=== PATIENT | female | born 1940 | race Caucasian/White ===

== ENCOUNTER → 2016-06-21 | Outpatient (CLI) | payer MEDICARE, BC ==
[2016-06-21 14:46] LABS: Blood Urea Nitrogen 22 mg/dL (7-17); Non-African American GFR(MDRD) 58 (>60 ml/min/1.73 sqM)
--- NOTE | 2016-06-21 15:36 | CT ---
CT CHEST FOR PULMONARY EMBOLISM. EXAMINATION TYPE: CT angio chest DATE OF EXAM: 06/21/2016 3:12 PM INDICATION: Patient complains of shortness of breath. CT DLP: 493.3 mGycm, Automated exposure control for dose reduction was used. CONTRAST: Patient injected with 80 mL of Visipaque 320. COMPARISON: NONE TECHNIQUE: CT of the chest is performed on a spiral scan at 2 mm thick sections. Study is performed with intravenous contrast timed for evaluation for pulmonary embolism. This will limit additional po rtions of the evaluation. 3-D MIP images reconstructed by the technologist are reviewed on the compu ter in the coronal and sagittal planes. FINDINGS: No persistent filling defects are evident to suggest an acute pulmonary embolism. No mediastinal or hilar adenopathy enlarged by CT criteria is evident. The ascending aorta diameter at the level of the main pulmonary artery is 3.4 cm. The main pulmonary artery diameter at the bifur cation is 2.8 cm. Some scarring or atelectasis may be at the anterior right middle lobe near the diaphragm. This could be followed. Minimal compressive atelectasis may be within the dependent portion of the lung bases. Limited CT section through the upper abdomen are unremarkable. IMPRESSIONS: 1. No acute pulmonary embolism. 2. Scarring or atelectasis within the right middle lobe. Small underlying mass density is not exclude d. Follow-up can be performed.
== END | disposition home or self-care (01) ==
LOC: RADCTMAIN 14:03
PROVIDERS: ATTEND Internal Medicine Critical Care Medicine
DX: R06.02 Shortness of breath (principal)
CPT/HCPCS: 82565; 84520; 71275; 36415; Q9967

== ENCOUNTER 2022-11-05 12:21 | Observation (INO) | payer MEDICARE ==
--- NOTE | 2022-11-05 12:43 | ED ---
Lower Extremity Injury HPI - General Chief Complaint: Extremity Injury, Lower Stated Complaint: R Hip Pain, sent by PCP anayeli with [facility] Time Seen by Provider: 11/05/22 12:24 Source: patient, family, RN notes reviewed Mode of arrival: wheelchair Limitations: no limitations - History of Present Illness Initial Comments: 82-year-old female presents emergency Department from orthopedics associate's office for admission secondary to intractable right hip pain, scheduled for right hip replacement tomorrow. Patient states the pain is 3 out of 10 while at rest but any movement pain is sniffily worse. She has had her medical clearance. She is scheduled to have surgery by Dr. Castillo tomorrow. - Related Data Allergies Allergy/AdvReac Type Severity Reaction Status Date / Time Penicillins Allergy Rash/Hives Verified 11/05/22 12:25 Sulfa (Sulfonamide Allergy Rash/Hives Verified 11/05/22 12:25 Antibiotics) Review of Systems ROS Statement: Those systems with pertinent positive or pertinent negative responses have been documented in the HPI. ROS Other: All systems not noted in ROS Statement are negative. Past Medical History Past Medical History: Hyperlipidemia, Hypertension, Thyroid Disorder Additional Past Medical History / Comment(s): diverticulitis History of Any Multi-Drug Resistant Organisms: None Reported Past Surgical History: Appendectomy, Bowel Resection, Heart Catheterization With Stent Additional Past Surgical History / Comment(s): colostomy /reversal Past Psychological History: No Psychological Hx Reported Smoking Status: Former smoker Past Alcohol Use History: None Reported Past Drug Use History: None Reported General Exam Limitations: no limitations General appearance: alert, in no apparent distress Head exam: Present: atraumatic, normocephalic, normal inspection Eye exam: Present: normal appearance, PERRL, EOMI. Absent: scleral icterus, conjunctival injection, periorbital swelling Neck exam: Present: normal inspection, full ROM. Absent: tenderness, meningismus, lymphadenopathy Respiratory exam: Present: normal lung sounds bilaterally. Absent: respiratory distress, wheezes, rales, rhonchi, stridor Cardiovascular Exam: Present: regular rate, normal rhythm, normal heart sounds. Absent: systolic murmur, diastolic murmur, rubs, gallop, clicks Extremities exam: Present: other (right hip mild tenderness neurovascular intact) Course Vital Signs 11/05/22 12:25 Temperature 98.2 F Pulse Rate 74 Respiratory 16 Rate Blood Pressure 95/58 O2 Sat by Pulse 97 Oximetry Medical Decision Making - Medical Decision Making Was pt. sent in by a medical professional or institution (CLAUDE Diaz, [employer] MAINFRAME DEVELOPER, urgent care, hospital, or half-way...) When possible be specific @ -Orthopedic surgeon Did you speak to anyone other than the patient for history (EMS, parent, family, police, friend...)? What history was obtained from this source @ -No Did you review nursing and triage notes (agree or disagree)? Why? @ -I reviewed and agree with nursing and triage notes Were old charts reviewed (outside hosp., previous admission, EMS record, old EKG, old radiological studies, urgent care reports/EKG's, half-way records)? Report findings @ -No old charts were reviewed Differential Diagnosis (chest pain, altered mental status, abdominal pain women, abdominal pain men, vaginal bleeding, weakness, fever, dyspnea, syncope, headache, dizziness, GI bleed, back pain, seizure, CVA, palpatations, mental health, musculoskeletal)? @ -Right hip pain, right hip osteoarthritis EKG interpreted by me (3pts min.). @ -As above X-rays interpreted by me (1pt min.). @ -None done CT interpreted by me (1pt min.). @ -None done U/S interpreted by me (1pt. min.). @ -None done What testing was considered but not performed or refused? (CT, X-rays, U/S, labs)? Why? @ -None What meds were considered but not given or refused? Why? @ -None Did you discuss the management of the patient with other professionals (professionals i.e. CLAUDE Diaz, [employer] MAINFRAME DEVELOPER, lab, RT, psych nurse, social work coordinator, compressor mechanic bus, teacher, tactical/mobile watch officer, case planner)? Give summary @ -Laine Warren from orthopedics associate for admission with medical consult. Was smoking cessation discussed for >3mins.? @ -No Was critical care preformed (if so, how long)? @ -No Were there social determinants of health that impacted care today? How? (Homelessness, low income, unemployed, alcoholism, drug addiction, transportation, low edu. Level, literacy, decrease access to med. care, usp, rehab)? @ -No Was there de-escalation of care discussed even if they declined (Discuss DNR or withdrawal of care, Hospice)? DNR status @ -No What co-morbidities impacted this encounter? (DM, HTN, Smoking, COPD, CAD, Cancer, CVA, ARF, Chemo, Hep., AIDS, mental health diagnosis, sleep apnea, morbid obesity)? @ -None Was patient admitted / discharged? Hospital course, mention meds given and route, prescriptions, significant lab abnormalities, going to OR and other pertinent info. @ -Admitted for pain control, medical management and surgery tomorrow. Undiagnosed new problem with uncertain prognosis? @ -No Drug Therapy requiring intensive monitoring for toxicity (Heparin, Nitro, Insulin, Cardizem)? @ -No Were any procedures done? @ -No Diagnosis/symptom? @ -Right hip pain] Acute, or Chronic, or Acute on Chronic? @ -[. Chronic] Uncomplicated (without systemic symptoms) or Complicated (systemic symptoms)? @ -[Uncomplicated] Side effects of treatment? @ -[No] Exacerbation, Progression, or Severe Exacerbation? @ -[No] Poses a threat to life or bodily function? How? (Chest pain, [place], [place], pneumonia, PE, COPD, DKA, ARF, appy, cholecystitis, CVA, Diverticulitis, Homicidal, Suicidal, threat to staff... and all critical care pts) @ -[No] Disposition Clinical Impression: Right hip pain, Osteoarthritis of right hip, Intractable pain Disposition: ADMITTED IP TO THIS [facility] Condition: Fair Referrals: Peyton Bishop PAC [Primary Care Provider] - 1-2 days Time of Disposition: 12:42
[2022-11-05] MEDS ORDERED: ONDANSETRON 4 MG/2 ML VIAL IVP PRN (12:44)
[2022-11-05 13:29] LABS: Basophils % (A) 0 %; Eosinophils # (A) 0.1 k/uL (0-0.7); Eosinophils % (A) 0 %; HCT 41.1 % (34.0-46.0); HGB 13.3 gm/dL (11.4-16.0); Lymphocytes # (A) 0.9 k/uL (1.0-4.8); Lymphocytes % (A) 6 %; MCH 28.8 pg (25.0-35.0); MCHC 32.4 g/dL (31.0-37.0); Mean Platelet Volume 8.4; Monocytes % (A) 7 %; Neutrophils # (A) 12.6 k/uL (1.3-7.7); Neutrophils % (A) 86 %; Platelet Count 320 k/uL (150-450); RBC 4.62 m/uL (3.80-5.40); RDW 13.7 % (11.5-15.5); WBC 14.7 k/uL (3.8-10.6)
[2022-11-05 13:42] LABS: Partial Thromboplastin Time 26.5 sec (22.0-30.0); Prothrombin Time 10.2 sec (9.0-12.0)
[2022-11-05] MEDS: HYDROmorphone 0.5 MG/0.5 ML SYRINGE IVP PRN ×2 (13:47→22:51)
[2022-11-05 13:56] LABS: ALT 16 U/L (4-34); AST 23 U/L (14-36); African American GFR (CKD) 41 (>60 ml/min/1.73 sqM); Albumin 4.3 g/dL (3.5-5.0); Alkaline Phosphatase 124 U/L (38-126); Blood Urea Nitrogen 35 mg/dL (7-17); Carbon Dioxide 24 mmol/L (22-30); Glucose 131 mg/dL (74-99); Non-African American GFR(CKD) 36 (>60 ml/min/1.73 sqM); Potassium 4.7 mmol/L (3.5-5.1); Total Bilirubin 0.8 mg/dL (0.2-1.3); Total Protein 7.7 g/dL (6.3-8.2)
[2022-11-05 14:02] LABS: Sodium 136 mmol/L (137-145)
[2022-11-05 14:40] LABS: Anion Gap 12 mmol/L; Chloride 100 mmol/L (98-107)
[2022-11-05 17:11] LABS: Appearance,Urine Clear (Clear); Bilirubin,Urine Negative (Negative); Blood,Urine Negative (Negative); Color,Urine Light Yellow; Glucose,Urine (UA) Negative (Negative); Ketones,Urine Negative (Negative); Leukocyte Esterase,Urine Negative (Negative); Nitrite,Urine Negative (Negative); Protein,Urine Negative (Negative); Specific Gravity,Urine 1.015 (1.001-1.035); Urobilinogen,Urine <2.0 mg/dL (<2.0)
--- NOTE | 2022-11-05 17:58 | P.HPOR ---
History of Present Illness H&P Date: 11/05/22 This patient is an 82-year-old female with past medical history of hypertension, hyperlipidemia, hypothyroidism who is scheduled to undergo an elective total hip arthroplasty tomorrow on 11/06/22. The patient was evaluated in the office earlier today by Dr. Castillo, and per the patient and her family she has been intractable pain due to her right hip arthritis. Therefore, the patient was sent to [facility] emergency department for admission for pain control prior to surgery tomorrow. Patient has been evaluated by her primary care physician and cardiology as an outpatient, has been cleared for surgery. Patient has no new complaints or concerns today. Past Medical History Past Medical History: Hyperlipidemia, Hypertension, Thyroid Disorder Additional Past Medical History / Comment(s): diverticulitis History of Any Multi-Drug Resistant Organisms: None Reported Past Surgical History: Appendectomy, Bowel Resection, Heart Catheterization With Stent Additional Past Surgical History / Comment(s): colostomy /reversal Past Psychological History: No Psychological Hx Reported Smoking Status: Former smoker Past Alcohol Use History: None Reported Past Drug Use History: None Reported Medications and Allergies Home Medications Medication Instructions Recorded Confirmed Type ALPRAZolam [Xanax] 0.5 mg PO DAILY PRN 11/05/22 11/05/22 History Atorvastatin [Lipitor] 40 mg PO HS 11/05/22 11/05/22 History Cholecalciferol [Vitamin D3 (125 125 mcg PO HS 11/05/22 11/05/22 History Mcg = 5000 Iu)] Famotidine [Pepcid] 20 mg PO DAILY 11/05/22 11/05/22 History Folic Acid 0.4 mg PO DAILY 11/05/22 11/05/22 History Levothyroxine Sodium 137 mcg PO DAILY 11/05/22 11/05/22 History Sertraline [Zoloft] 100 mg PO DAILY 11/05/22 11/05/22 History Triamterene-Hctz 37.5-25Mg 1 tab PO DAILY 11/05/22 11/05/22 History [Maxzide 37.5-25] lisinopriL [Zestril] 20 mg PO DAILY 11/05/22 11/05/22 History Allergies Allergy/AdvReac Type Severity Reaction Status Date / Time Penicillins Allergy Rash/Hives Verified 11/05/22 15:18 Sulfa (Sulfonamide Allergy Rash/Hives Verified 11/05/22 15:18 Antibiotics) sulfamethoxazole Allergy Rash/Hives Verified 11/05/22 15:18 [From Bactrim] trimethoprim [From Bactrim] Allergy Rash/Hives Verified 11/05/22 15:18 tramadol AdvReac Hallucinati Verified 11/05/22 15:18 ons Physical Examination Patient is examined earlier today in the office. On examination, patient is sitting up in a wheelchair in no apparent distress. She is alert and oriented 3. On inspection of her right hip, there are no open wounds or lacerations. There is pain with any attempts at passive [id number] of the right hip. Motor and sensory function is intact right lower extremity. Right lower extremity is warm and well-perfused. Results - Labs Labs: Abnormal Lab Results - Last 24 Hours (Table) 11/05/22 11/05/22 Range/Units 13:01 13:01 WBC 14.7 H (3.8-10.6) k/uL Neutrophils # 12.6 H (1.3-7.7) k/uL Lymphocytes # 0.9 L (1.0-4.8) k/uL Sodium 136 L (137-145) mmol/L BUN 35 H (7-17) mg/dL Creatinine 1.37 H (0.52-1.04) mg/dL Glucose 131 H (74-99) mg/dL H & H 11/05/22 Range/Units 13:01 Hgb 13.3 (11.4-16.0) gm/dL Hct 41.1 (34.0-46.0) % Coagulation 11/05/22 Range/Units 13:01 INR 1.0 (<1.2) Result Diagrams: 11/05/22 13:01 11/05/22 13:01 Assessment and Plan Assessment: Severe right hip osteoarthritis Plan: - Patient is scheduled to undergo right total hip arthroplasty tomorrow. She has been cleared as an outpatient by her PCP and her school clerk. Pre- operative lab work will be obtained inpatient today. - Internal medicine has been consulted for ashleigh-operative medical management. - Patient may ambulate as tolerated with a walker. - Pain medication as needed. - NPO diet at midnight.
[2022-11-05] MEDS: HYDROcodone/APAP 5-325MG 1 EACH TAB PO PRN (19:14)
[2022-11-05] MEDS ORDERED: ALPRAZolam 0.5 MG TAB PO PRN (22:21)
[2022-11-05] MEDS: ATORVASTATIN 40 MG TAB PO SCH (22:51)
[2022-11-05] MEDS: CHOLECALCIFEROL 125 MCG (5000 IU) TABLET PO SCH (22:51)
[2022-11-06] MEDS ORDERED: ROPIVACAINE/EPI/CLONIDINE/KET 50 ML SYRINGE MISCELLANE PRN (05:00)
[2022-11-06] MEDS ORDERED: oxyCODONE ER 10 MG TAB.ER.12H PO PRN (06:00)
[2022-11-06] MEDS ORDERED: DEXAMETHASONE SOD PHOSPHATE 10 MG/ML 1 ML VIAL IV PRN (06:00)
[2022-11-06] MEDS ORDERED: ACETAMINOPHEN TAB 500 MG TAB PO PRN (06:00)
[2022-11-06] MEDS ORDERED: TRANEXAMIC 1,000 MG/100ML-NACL 1,000 MG in SALINE 1 100ML.BAG IVPB PRN (06:00)
[2022-11-06] MEDS ORDERED: VANCOMYCIN 1,250 MG in SODIUM CHLORIDE 0.9% 250 ML IVPB PRN (06:00)
[2022-11-06] MEDS ORDERED: ONDANSETRON 4 MG/2 ML VIAL IVP PRN (06:00)
[2022-11-06] MEDS ORDERED: TRANEXAMIC 1,000 MG/100ML-NACL 1,000 MG in SALINE 1 100ML.BAG IV PRN (06:00)
[2022-11-06] MEDS ORDERED: DOCUSATE 100 MG CAP PO PRN (06:00)
[2022-11-06] MEDS ORDERED: KETOROLAC 15 MG/ML 1 ML VIAL IVP PRN (06:00)
[2022-11-06] MEDS ORDERED: FAMOTIDINE 20 MG/2 ML VIAL IVP PRN (06:00)
[2022-11-06] MEDS: HYDROcodone/APAP 5-325MG 1 EACH TAB PO PRN ×2 (06:39→21:09)
[2022-11-06] MEDS: LEVOTHYROXINE 137 MCG TAB PO SCH (06:39)
[2022-11-06] MEDS: SERTRALINE 100 MG TAB PO SCH (08:18)
[2022-11-06] MEDS: FAMOTIDINE 20 MG TAB PO SCH (08:18)
[2022-11-06] MEDS: FOLIC ACID 1 MG TAB PO SCH (08:18)
[2022-11-06] MEDS ORDERED: TRIAMTERENE-HCTZ 37.5-25MG 1 EACH TAB PO SCH (09:00)
[2022-11-06] MEDS ORDERED: VANCOMYCIN IV PER PHARMACY 1 EACH MISC MISCELLANE PRN (09:22)
[2022-11-06 10:46] LABS: Basophils % (A) 0 %; Eosinophils # (A) 0.2 k/uL (0-0.7); Eosinophils % (A) 1 %; HCT 41.6 % (34.0-46.0); HGB 13.5 gm/dL (11.4-16.0); Lymphocytes # (A) 1.1 k/uL (1.0-4.8); Lymphocytes % (A) 9 %; MCHC 32.4 g/dL (31.0-37.0); MCV 89.6 fL (80.0-100.0); Mean Platelet Volume 8.1; Monocytes # (A) 0.8 k/uL (0-1.0); Monocytes % (A) 7 %; Neutrophils # (A) 10.2 k/uL (1.3-7.7); Neutrophils % (A) 82 %; Platelet Count 329 k/uL (150-450); RBC 4.65 m/uL (3.80-5.40); RDW 13.8 % (11.5-15.5); WBC 12.5 k/uL (3.8-10.6)
[2022-11-06 10:56] LABS: African American GFR (CKD) 44 (>60 ml/min/1.73 sqM); Anion Gap 13 mmol/L; Blood Urea Nitrogen 41 mg/dL (7-17); Calcium 9.8 mg/dL (8.4-10.2); Carbon Dioxide 20 mmol/L (22-30); Chloride 103 mmol/L (98-107); Glucose 142 mg/dL (74-99); Magnesium 1.6 mg/dL (1.6-2.3); Non-African American GFR(CKD) 38 (>60 ml/min/1.73 sqM); Potassium 4.9 mmol/L (3.5-5.1); Sodium 136 mmol/L (137-145)
[2022-11-06] MEDS ORDERED: Magnesium Replacement Protocol 1 EACH MISC MISCELLANE PRN (11:18)
--- NOTE | 2022-11-06 11:35 | P.CONS ---
History of Present Illness - Reason for Consult Consult date: 11/06/22 Medical management, right hip arthroplasty - History of Present Illness This is a 82-year-old female who presented to the emergency department 1 day prior to outpatient orthopedic intervention for uncontrolled pain of the right hip. Patient is scheduled for right hip arthroplasty with Dr. Castillo today and has received cardiology and medical clearance from her primary care provider Peyton Blackwell. Patient reports she had a stress test and echocardiogram within the last month or so and has achieved cardiac clearance. Patient follows with Peyton Bishop in the outpatient setting with a past medical history of hyperlipidemia, hypertension, osteoarthritis, thyroid disorder, previous heart catheterization with stenting and was a former smoker. Patient denies any alcohol or illicit drug use. Patient was having some uncontrolled pain in the right hip and presented to the emergency department also with some generalized feelings of shortness of breath. EKG in the ER showed sinus rhythm with frequent supraventricular premature complexes with heart rate of 74 bpm. Will obtain repeat EKG this patient's heart rate is noted to be in the 40s and 50s today. Patient reports this is chronic. Patient also reports she chronically has an elevated white count on initial labs were 14.7 with a hemoglobin of 13.3 and platelets were normal at 320. Sodium was 136 with a potassium of 4.7, BUN 35 with a creatinine of 1.37. Urinalysis was negative. Patient was admitted to orthopedics and scheduled to have right hip arthroplasty today. Review Of Systems: Constitutional: No fever, no chills, no night sweats. No weight change. No weakness, fatigue or lethargy. No daytime sleepiness. EENT: No headache. No blurred vision or double vision, no loss of vision. No loss of Hearing, no ringing in the ears, no dizziness. No nasal drainage or congestion. No epistaxis. No sore throat. Lungs: Reports of shortness of breath prior to ER admission, no cough, no sputum production. No wheezing. Cardiovascular: No chest pain, no lower extremity edema. No palpitations. No paroxysmal nocturnal dyspnea. No orthopnea. No lightheadedness or dizziness. No syncopal episodes. Abdominal: No abdominal pain. No nausea, vomiting. No diarrhea. No constipation. No bloody or tarry stools.. No loss of appetite. Genitourinary: No dysuria, increased frequency, urgency. No urinary retention. Musculoskeletal: No myalgias. No muscle weakness, no gait dysfunction, no frequent falls. No back pain. No neck pain. Reports severe right hip pain Integumentary: No wounds, no lesions. No rash or pruritus. No unusual bruising. No change in hair or nails. Neurologic: No aphasia. No facial droop. No change in mentation. No head injury. No headache. No paralysis. No paresthesia. Psychiatric: No depression. No anxiety. No mood swings. Endocrine: No abnormal blood sugars. No weight change. No excessive sweating or thirst. No cold intolerance. PHYSICAL EXAMINATION: GENERAL: The patient is alert and oriented x4, Well developed, well nourished. Obese HEENT: Pupils are round and equally reacting to light. EOMI. no scleral icterus. No conjunctival pallor. Normocephalic, atraumatic. No pharyngeal erythema. No thyromegaly. CARDIOVASCULAR: S1 and S2 muffled PULMONARY: diminished breath sounds bilaterally with no wheezing or rhonchi noted. ABDOMEN: soft. Nontender on exam. obese. non-distended, normoactive bowel sounds. No palpable organomegaly. MUSCULOSKELETAL: No joint swelling or deformity. EXTREMITIES: No cyanosis, clubbing, or pedal edema. NEUROLOGICAL: Gross neurological examination did not reveal any focal deficits. Diffuse weakness SKIN: No rashes. Assessment: Right hip pain with history of severe osteoarthritis scheduled to undergo right hip arthroplasty today Acute kidney injury, likely secondary to diuretic and lisinopril which will be held, trending down Hypomagnesemia, being replaced History of hyperlipidemia History of hypertension History of osteoarthritis Hypothyroidism history Obesity with BMI of 30.6 GI prophylaxis DVT prophylaxis Full code Plan: Patient is admitted under orthopedics and was at the office yesterday and was sent here for pain control prior to surgery. Patient is currently nothing by mouth Initial EKG obtained and reviewed and patient reports she went to her lump room supervisor in the [place] area and had 2-D echo along with stress test which was told as normal. Patient's heart rate this morning is in the 40s and 50s and will obtain EKG. Patient reports this is chronic Patient's white count mildly elevated, likely reactive as patient is afebrile denies any chest pain or shortness of breath or any pain, burning, or frequency with urination Patient's creatinine mildly elevated and patient reports this is chronic as well most likely secondary to lisinopril and diuretic use which are being held Will obtain chest x-ray and EKG to verify Follow-up labs show a white count of 12.5 hemoglobin remained stable at 13.5, BUN 41 and creatinine slightly improved at 1.30 Magnesium 1.6 and will replace and follow up with repeat labs in a.m. Risks versus benefits were explained and patient has obtained surgical and medical clearance outpatient and given patient's comorbidities patient is low to moderate risk for surgical intervention. Patient scheduled to undergo right hip arthroplasty today. We will continue to follow with orthopedics during hospitalization. Thank you kindly for this consultation. The impression and plan of care has been dictated by Moriah Mack, nurse practitioner as directed. Dr. Ninfa MD I have performed a history and examination and MDM of this patient, discussed the same with the dictator, and agree with the dictator's assessment and plan as written ,documented as a scribe. Based on total visit time, I have performed more than 50% of the visit. Any additional findings or plans will be noted. Past Medical History Past Medical History: Hyperlipidemia, Hypertension, Osteoarthritis (OA), Thyroid Disorder Additional Past Medical History / Comment(s): diverticulitis History of Any Multi-Drug Resistant Organisms: None Reported Past Surgical History: Appendectomy, Bowel Resection, Heart Catheterization With Stent Additional Past Surgical History / Comment(s): colostomy /reversal Past Anesthesia/Blood Transfusion Reactions: No Reported Reaction Date of Last Stent Placement:: 2009? Past Psychological History: No Psychological Hx Reported Smoking Status: Former smoker Past Alcohol Use History: None Reported Past Drug Use History: None Reported Medications and Allergies Home Medications Medication Instructions Recorded Confirmed Type ALPRAZolam [Xanax] 0.5 mg PO DAILY PRN 11/05/22 11/05/22 History Atorvastatin [Lipitor] 40 mg PO HS 11/05/22 11/05/22 History Cholecalciferol [Vitamin D3 (125 125 mcg PO HS 11/05/22 11/05/22 History Mcg = 5000 Iu)] Famotidine [Pepcid] 20 mg PO DAILY 11/05/22 11/05/22 History Folic Acid 0.4 mg PO DAILY 11/05/22 11/05/22 History Levothyroxine Sodium 137 mcg PO DAILY 11/05/22 11/05/22 History Sertraline [Zoloft] 100 mg PO DAILY 11/05/22 11/05/22 History Triamterene-Hctz 37.5-25Mg 1 tab PO DAILY 11/05/22 11/05/22 History [Maxzide 37.5-25] lisinopriL [Zestril] 20 mg PO DAILY 11/05/22 11/05/22 History Allergies Allergy/AdvReac Type Severity Reaction Status Date / Time Penicillins Allergy Rash/Hives Verified 11/05/22 15:18 Sulfa (Sulfonamide Allergy Rash/Hives Verified 11/05/22 15:18 Antibiotics) sulfamethoxazole Allergy Rash/Hives Verified 11/05/22 15:18 [From Bactrim] trimethoprim [From Bactrim] Allergy Rash/Hives Verified 11/05/22 15:18 tramadol AdvReac Hallucinati Verified 11/05/22 15:18 ons Physical Exam Vitals: Vital Signs Temp Pulse Pulse Resp BP BP Pulse Ox 11/06/22 08:00 45 L 16 11/06/22 06:57 98.4 F 45 L 16 119/66 94 L 11/06/22 02:00 98.1 F 49 L 95/51 93 L 11/05/22 20:00 98 F 69 17 112/71 93 L 11/05/22 18:34 70 18 104/54 94 L 11/05/22 16:43 64 20 123/107 96 11/05/22 14:40 77 18 133/64 100 11/05/22 13:44 69 18 120/69 94 L 11/05/22 12:25 98.2 F 74 16 95/58 97 Intake and Output 11/05/22 11/06/22 11/06/22 22:59 06:59 14:59 Other: Voiding Method Bedside Commode Bedside Commode # Voids 1 Weight 83.461 kg Results CBC & Chem 7: 11/06/22 10:35 11/06/22 10:35 Labs: Abnormal Lab Results - Last 24 Hours (Table) 11/05/22 11/05/22 Range/Units 13:01 13:01 WBC 14.7 H (3.8-10.6) k/uL Neutrophils # 12.6 H (1.3-7.7) k/uL Lymphocytes # 0.9 L (1.0-4.8) k/uL Sodium 136 L (137-145) mmol/L BUN 35 H (7-17) mg/dL Creatinine 1.37 H (0.52-1.04) mg/dL Glucose 131 H (74-99) mg/dL
[2022-11-06] MEDS ORDERED: MAGNESIUM SULFATE-D5W PMX 1 GM in DEXTROSE/WATER 1 100ML.BAG IVPB ONE (12:00)
--- NOTE | 2022-11-06 12:12 | XR ---
EXAMINATION TYPE: XR chest 1V portable DATE OF EXAM: 11/06/2022 COMPARISON: NONE HISTORY: Shortness of breath TECHNIQUE: Single frontal view of the chest is obtained. FINDINGS: There is no focal air space opacity, pleural effusion, or pneumothorax seen. The cardiac silhouette size is within normal limits. Hypertrophic and degenerative changes spine. Diffuse osteope veronika. AC joint arthropathy. Hyperinflation suggests COPD. IMPRESSION: No acute intrathoracic process.
[2022-11-06] MEDS ORDERED: IV FLUID CONTINUATION 1,000 ML IV ONE (13:16)
[2022-11-06] MEDS ORDERED: LIDOCAINE 1% (10MG/ML) FOR IV START INTRADERMA PRN (13:29)
[2022-11-06] MEDS ORDERED: MIDAZOLAM 2 MG/2 ML VIAL IV PRN (13:29)
[2022-11-06] MEDS ORDERED: ONDANSETRON 4 MG/2 ML VIAL IVP ONE (13:29)
[2022-11-06] MEDS ORDERED: HYDROmorphone 0.5 MG/0.5 ML SYRINGE IVP PRN ×4 (13:29→16:57)
[2022-11-06] MEDS ORDERED: ROPIVACAINE 5 MG/ML 30 ML VIAL ONE (14:11)
[2022-11-06] MEDS ORDERED: NEOSTIGMINE 1 MG/ML 10 ML VIAL ONE (14:11)
[2022-11-06] MEDS ORDERED: LIDOCAINE 2% INJ 20 MG/ML (2 ML VIAL) ONE (14:11)
[2022-11-06] MEDS ORDERED: PROPOFOL 10 MG/ML 20 ML VIAL IV ONE (14:11)
[2022-11-06] MEDS ORDERED: fentaNYL (PF) 50 MCG/ML 2 ML AMP ONE (14:11)
[2022-11-06] MEDS ORDERED: GLYCOPYRROLATE 0.2 MG/ML 2 ML VIAL ONE (14:11)
[2022-11-06] MEDS ORDERED: DEXAMETHASONE SOD PHOSPHATE 4 MG/ML 1 ML VIAL ONE (14:11)
[2022-11-06] MEDS ORDERED: SUCCINYLCHOLINE CHLORIDE 200 MG/10 ML VIAL IV ONE (14:11)
[2022-11-06] MEDS ORDERED: ROCURONIUM 10 MG/ML (5 ML VIAL) IV ONE (14:11)
[2022-11-06] MEDS ORDERED: ePHEDrine 50 MG/ML 1 ML VIAL ONE (14:11)
[2022-11-06] MEDS ORDERED: TRANEXAMIC 1,000 MG/100ML-NACL PREMIX BAG ONE (14:11)
--- NOTE | 2022-11-06 15:44 | P.ANPRN ---
Procedure Note - Anesthesia - Nerve Block Performed Right Gato Single Time Out Performed: Yes Date of Procedure: 11/06/22 Procedure Start Time: 14:06 Procedure Stop Time: 14:10 Location of Patient: PreOp Indication: Acute Post-Operative Pain, Requested by Surgeon Sedation Type: Sedate with meaningful contact maintained Preparation: Sterile Prep Position: Supine Needle Types: Pajunk Needle Gauge: 21 Ultrasound used to visualize needle placement: Yes Ultrasound used to observe medication spread: Yes Blood Aspirated: No Pain Paresthesia on Injection Noted: No Resistance on Injection: Normal Image Stored and Saved: Yes Events: Uneventful and Well Tolerated (ropi .5% 20cc plus dexamethasone 4mg)
[2022-11-06] MEDS ORDERED: VANCOMYCIN 1,000 MG VIAL MISCELLANE ONE (16:13)
[2022-11-06] MEDS ORDERED: LACTATED RINGERS 1,000 ML IV ONE (16:31)
--- NOTE | 2022-11-06 16:55 | P.OP ---
Date of Procedure: 11/06/22 Preoperative Diagnosis: 1. 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 Osteopenia 3. BMI 30.6 4. Coronary artery disease 5. Chronic kidney disease Postoperative Diagnosis: Same Procedure(s) Performed: 1. Right direct anterior total hip arthroplasty 2. Application of negative pressure incisional wound VAC right hip, less than 50 cm (incision length 15 cm) Implants: 1. Tarrs Trident II Acetabular Cup, Size #48 2. Tarrs Accolade C Size # 3 Femoral Stem, Standard Offset 3. Dual Mobility OD 38 mm, ID 22.2 mm, +0 neck Anesthesia: REESE, regional Surgeon: Luis Castillo Site Auditor #1: Camila Warren Estimated Blood Loss (ml): 200 IV fluids (ml): 700 Pathology: none sent Condition: stable Disposition: PACU Indications for Procedure: The patient is a very pleasant 82-year-old female with long-standing history of right hip problems. I been seeing her and managing her nonoperatively for her hip for the past year. Over the past several months she has been incapacitated by her hip pain and has been essentially wheelchair bound. The patient's children as well as the patient of both requested proceeding with total hip replacement. We discussed the potential risk for complication given her age. They understand this but all wished to proceed with surgery. The patient became so painful and the family was having such a difficult time taking care of her th at she was admitted yesterday and cleared for surgery today. I had a long discussion with the patient in the office on the potential risks and complications of an elective total hip replacement through a direct anterior approach. Risks discussed include, but are certainly not limited to, risks from anesthesia, superficial infection requiring local wound care or antibiotics, deep ashleigh-prosthetic joint infection and the treatment required to eradicate infection, intraoperative fracture, postoperative periprosthetic fracture, damage to local blood vessels or nerves particularly the lateral femoral cutaneous nerve, delayed wound healing requiring local wound care or possibly surgical debridement, hip dislocation, leg length discrepancy, soft tissue irritation around the total hip implant such as iliopsoas tendinitis or trochanteric bursitis, wear and osteolysis from the implants, squeaking or audible noises, groin pain, thigh pain, heterotopic ossification, stiffness, aseptic loosening of the implants, dissatisfaction with surgical outcome, need for revision surgery, DVT, PE, swelling of the operative extremity, acute coronary event, stroke, failure to thrive, and possibly loss of life or limb. The patient understands that while these are the most common complications after an elective hip replacement there are certainly other less common complications possible. They were given ample time to ask questions regarding the potential complications of a hip replacement. Following our discussion the patient provided their verbal and written consent to go forward with an elective total hip replacement. Operative Findings: Severe right hip arthritis with full-thickness cartilage loss and collapse of the femoral head Description of Procedure: The patient was identified in the preoperative holding area and the correct hip was marked with my initials. I reviewed the procedure and consent with the patient. All of their questions were answered. The patient was then brought back into the operating room by anesthesia. While on the [facility] anesthesia was administered by the anesthesia team. Preoperative antibiotics and tranexamic acid were also given. After the patient was under anesthesia I examined their ankles to determine their preoperative leg length discrepancy. The skin over the anterior aspect of the hip was shaved to remove hair over the site of planned incision. Both feet and ankles were padded with webril and boots for the [place] were applied. The patient was then carefully transferred onto the [place] table. A perineal post was immediately placed. The arms were placed on arm holders and were well-padded. Both boots were secured to the spars on the [place] table. The patient was positioned so that the pelvis was centered over the post. Nonsterile drapes were applied. A timeout was performed identifying the correct patient, operative extremity, and procedure. At this point fluoroscopy was brought in to take preoperative images of the pelvis and operative hip. Using the standing AP pelvis from the office as a template, a comparable image was obtained with fluoroscopy. A metallic bar was used to create a bi-ischial line for use as a reference to leg length adjustments during the procedure. Global offset was also measured on both the operative and nonoperative leg. Fluoroscopy was then brought out and a pre-scrub using a chlorhexidine scrub brush was performed. The operative limb was then prepped and draped in the standard sterile fashion. An anterior longitudinal incision was made lateral and distal to the ASIS. The skin and subcutaneous tissues were incised sharply. The underlying tensor fascia was identified and incised in its midportion. The fascia was dissected free from the underlying muscle and the muscle belly was retracted. A blunt tipped cobra retractor was placed over the superior neck under the muscle fibers of the gluteus minimus. The deep enveloping fascia of the tensor was incised. The anterior leash of vessels were then identified and cauterized. The fascia between the rectus and the capsule was then incised and the pre-capsular fat was excised. A second Cobra was placed inferior to the neck. The interval between the rectus and iliocapsularis and the hip capsule was developed and a retractor was placed carefully over the anterior rim of the acetabulum. A T-shaped anterior capsulotomy was performed. The superior capsular leaflet was left in place in the inferior capsular flap was excised. The Cobra retractors were placed intracapsularly. We then made a femoral neck osteotomy according to preoperative and intraoperative templating and confirmed the level of the osteotomy using fluoroscopic imaging. The femoral head was removed, passed off to the back table, and sized. The superior capsular flap was excised. Retractors were placed circumferentially exposing the acetabulum. We then circumferentially debrided the acetabulum free of labrum and osteophytes. The pulvinar was removed to fully visualize the cotyloid fossa. We then sequentially reamed to achieve peripheral fit and excellent bleeding subchondral bone. The socket was thoroughly irrigated. The acetabular component was impacted into the appropriate position using fluoroscopy to guide version, inclination, and depth of insertion taking care to have a comparable image of the AP pelvis to the standing image taken in the office. An excellent press-fit was achieved and final position was confirmed using fluoroscopy. The press fit was augmented with bony cancellus dome screws. The liner was then impacted into the socket. Attention was then turned to the femur. The remnant dorsal lateral capsule was excised. The short external rotators were visible and protected. A bone hook was used to confirm appropriate translation of the trochanter away from the acetabulum. The leg was then extended and adducted and the bone hook was used to elevate the femur for broaching. On inspection of the patient's proximal femur, they appeared to have poor bone quality so I elected to proceed with cemented fixation of the femoral component. A box osteotome and blunt tipped canal sound was then utilized to gain access to the femoral canal. We then sequentially broached the femur in appropriate anteversion until torsional stability was achieved and the implant was felt to have reached the appropriate size to allow trialing. The neck cut was brought flush to the trial broach with a calcar planar. A trial neck and head were then placed onto the broach and the hip was atraumatically reduced under direct visualization. External rotation to 90 was performed to assess stability. Fluoroscopy was brought in. An AP and lateral fluoroscopic image of the proximal femur was obtained to assess position and fill of the trial broach. An AP of the pelvis was then obtained and matched to the preoperative image taken. A bi-ischial bar was then placed and measurements were taken to assess changes in length and offset. The hip was then carefully dislocated, the proximal femur was exposed, and the trial implants were removed. The proximal femur was then prepared for cementing. The canal was thoroughly irrigated with pulsatile lavage to remove blood and marrow contents. A cement restrictor was placed to a depth just distal to the tip of the final implant. Epinephrine-soaked gauze was then packed into the proximal femur. 2 bags of cement were then mixed using a centrifuge and placed into a cement gun. Anesthesia was notified that cementing was about to commence to make sure the patient was appropriately ventilated and hydrated. Once the cement had reached appropriate consistency, the cement gun was used to fill the canal in a retrograde fashion starting at the restrictor. Cement was then pressurized into the canal with a blue tipped combiner operator. The stem was then carefully introduced into the cement taking care to guide the implant into appropriate version. The stem was held in position until the cement had fully set. All extra cement was removed while the cement was hardening. The trunnion was cleansed and the final head was tapped into place to engage the Olivarez taper. The acetabulum was irrigated and visualized to be free of debris. The hip was carefully reduced. Stability was checked clinically with external rotation to 90 and there was no evidence of instability. Final fluoroscopic images were taken. The wound was then thoroughly irrigated and soaked with a dilute Betadine rinse for 3 minutes. 3 L of sterile saline was irrigated through the wound using pulsatile lavage. Local anesthetic cocktail was injected into the soft tissues around the surgical field. 2 g of vancomycin powder was placed deep within the wound around the implant. A deep drain was placed. The wound was then closed in layers. An incisional wound VAC was placed over the surgical incision and drain site. The wound VAC had an excellent seal and was set to continuous suction. The drapes were taken down and the patient was carefully transferred off of the [place] table. Following removal of the boots the leg lengths felt acceptable. The patient was then taken to recovery room having tolerated the procedure well. Camila Warren PA-C was required as a skilled visitor services assistant for patient positioning, surgical exposure, retraction, placement of implants, and closure of the surgical wound. PLAN: The patient can weight-bear as tolerated on the operative extremity. 2 doses of postoperative antibiotics. The patient will be discharged home on doxycycline 100 mg twice a day for 2 weeks given her body habitus, age, and history of finger infection. Her incisional wound VAC will be left in place for 2 weeks. DVT prophylaxis with aspirin 81 mg twice a day based on preoperative risk stratification. Physical therapy for gait training. Discontinue drain postoperative day #1 if output is less than 100 mL per shift. She will likely need discharge to rehab.
[2022-11-06] MEDS ORDERED: hydrOXYzine pamoate 25 MG CAP PO PRN (16:57)
[2022-11-06] MEDS ORDERED: NALOXONE 0.4 MG/ML 1 ML VIAL IV PRN (16:57)
[2022-11-06] MEDS ORDERED: HYDROcodone/APAP 5-325MG 1 EACH TAB PO PRN (17:07)
[2022-11-06] MEDS: LACTATED RINGERS 1,000 ML IV SCH ×2 (19:24)
[2022-11-06] MEDS: ATORVASTATIN 40 MG TAB PO SCH (21:09)
[2022-11-06] MEDS: ASPIRIN 81 MG PO SCH (21:09)
[2022-11-06] MEDS: SENNOSIDES-DOCUSATE SODIUM 1 EACH TAB PO SCH (21:09)
[2022-11-06] MEDS: CHOLECALCIFEROL 125 MCG (5000 IU) TABLET PO SCH (21:13)
--- NOTE | 2022-11-06 22:16 | FL ---
EXAMINATION TYPE: FL guidance operating room, XR Hip Limited RT DATE OF EXAM: 11/06/2022 CLINICAL HISTORY: Right hip pain and osteoarthritis TECHNIQUE: Fluoroscopy. Limited intraoperative views right hip COMPARISON: None. FINDINGS: Fluoroscopic guidance was provided during right hip replacement procedure performed by Dr. Castillo. A total of 37 seconds of fluoroscopic time was utilized during the procedure and 7 spot i mages was acquired. Total dose area product (DAP) in uGy*m?, mGy*cm? (or similar: 1.7576. Intraoperative images acquired show metallic hardware from total right hip arthroplasty satisfactory in position on intraoperative images obtained. IMPRESSION: As Above.
[2022-11-07] MEDS: HYDROcodone/APAP 5-325MG 1 EACH TAB PO PRN ×4 (02:43→20:28)
[2022-11-07] MEDS: LEVOTHYROXINE 137 MCG TAB PO SCH (06:24)
[2022-11-07] MEDS: LACTATED RINGERS 1,000 ML IV SCH ×2 (06:27→20:32)
[2022-11-07 07:30] LABS: Basophils % (A) 0 %; Eosinophils % (A) 0 %; HCT 31.6 % (34.0-46.0); Lymphocytes # (A) 0.4 k/uL (1.0-4.8); Lymphocytes % (A) 2 %; MCH 29.3 pg (25.0-35.0); MCHC 32.4 g/dL (31.0-37.0); MCV 90.5 fL (80.0-100.0); Mean Platelet Volume 8.4; Monocytes # (A) 1.5 k/uL (0-1.0); Monocytes % (A) 7 %; Neutrophils # (A) 19.5 k/uL (1.3-7.7); Neutrophils % (A) 90 %; Platelet Count 295 k/uL (150-450); RBC 3.49 m/uL (3.80-5.40); RDW 13.8 % (11.5-15.5); WBC 21.7 k/uL (3.8-10.6)
[2022-11-07 07:37] LABS: HGB 10.2 gm/dL (11.4-16.0)
[2022-11-07] MEDS: SERTRALINE 100 MG TAB PO SCH (08:57)
[2022-11-07] MEDS: ASPIRIN 81 MG PO SCH ×2 (08:57→20:28)
[2022-11-07] MEDS: FAMOTIDINE 20 MG TAB PO SCH (08:57)
[2022-11-07] MEDS: FOLIC ACID 1 MG TAB PO SCH (08:57)
[2022-11-07] MEDS ORDERED: TEMAZEPAM 7.5 MG CAP PO PRN (12:24)
[2022-11-07 13:28] LABS: African American GFR (CKD) 26 (>60 ml/min/1.73 sqM); Anion Gap 13 mmol/L; Blood Urea Nitrogen 49 mg/dL (7-17); Calcium 8.7 mg/dL (8.4-10.2); Carbon Dioxide 20 mmol/L (22-30); Chloride 100 mmol/L (98-107); Glucose 146 mg/dL (74-99); Non-African American GFR(CKD) 23 (>60 ml/min/1.73 sqM); Potassium 4.7 mmol/L (3.5-5.1); Sodium 133 mmol/L (137-145)
[2022-11-07] MEDS: TAMSULOSIN 0.4 MG CAP.ER.24H PO SCH (13:35)
[2022-11-07] MEDS ORDERED: QUEtiapine 25 MG TAB PO PRN (15:50)
[2022-11-07] MEDS ORDERED: ALPRAZolam 0.5 MG TAB PO PRN (15:51)
--- NOTE | 2022-11-07 16:06 | P.PN ---
Subjective Progress Note Date: 11/07/22 - Reason for Consult Consult date: 11/06/22 Medical management, right hip arthroplasty - History of Present Illness This is a 82-year-old female who presented to the emergency department 1 day prior to outpatient orthopedic intervention for uncontrolled pain of the right hip. Patient is scheduled for right hip arthroplasty with Dr. Castillo today and has received cardiology and medical clearance from her primary care provider Peyton Blackwell. Patient reports she had a stress test and echocardiogram within the last month or so and has achieved cardiac clearance. Patient follows with Peyton Bishop in the outpatient setting with a past medical history of hyperlipidemia, hypertension, osteoarthritis, thyroid disorder, previous heart catheterization with stenting and was a former smoker. Patient denies any alcohol or illicit drug use. Patient was having some uncontrolled pain in the right hip and presented to the emergency department also with some generalized feelings of shortness of breath. EKG in the ER showed sinus rhythm with frequent supraventricular premature complexes with heart rate of 74 bpm. Will obtain repeat EKG this patient's heart rate is noted to be in the 40s and 50s today. Patient reports this is chronic. Patient also reports she chronically has an elevated white count on initial labs were 14.7 with a hemoglobin of 13.3 and platelets were normal at 320. Sodium was 136 with a potassium of 4.7, BUN 35 with a creatinine of 1.37. Urinalysis was negative. Patient was admitted to orthopedics and scheduled to have right hip arthroplasty today. 11/07/2022 Patient is seen in follow-up today status post right hip arthroplasty and reports her pain is good and controlled of the right hip although having some neck pain and also experience some urinary retention requiring straight ca theterization this morning. Discussed with nursing staff and will start Flomax and continue with protocol if requiring another straight catheterization consider indwelling Trinh catheter. Patient's kidney functions elevated today at 1.97 and was continued on vancomycin for surgery which has been completed and we'll transition to gentle IV hydration with normal saline as sodium is also slightly low at 133 and follow-up with repeat labs to monitor kidney functions. Magnesium 1.7 and will replace per protocol as well. White count was elevated at 21.7 although patient is afebrile with no reports of shortness of breath or infectious process. Most likely reactive and will follow-up with repeat labs in a.m. Patient is afebrile denies chest pain or shortness of breath and reports tolerating diet. Patient not eating very much as she reports not much of an appetite today. Patient also reports she hasn't slept in 2 days and will add as needed Seroquel at night. Patient work with physical therapy with case management following and working on ECF. Review of systems: Constitutional: No reports of fatigue, fever, or chills Cardiovascular: No reports of chest pain or palpitations Respiratory: No reports of shortness of breath or cough GI: No reports of nausea, vomiting, or diarrhea : No reports of dysuria or pain or frequency with urination. Patient retaining this morning requiring straight catheterization Neurovascular: No reports of weakness or numbness All medications have been reviewed PHYSICAL EXAMINATION: GENERAL: The patient is alert and oriented x4, Well developed, well nourished. Obese HEENT: Pupils are round and equally reacting to light. EOMI. no scleral icterus. No conjunctival pallor. Normocephalic, atraumatic. No pharyngeal erythema. No thyromegaly. CARDIOVASCULAR: S1 and S2 muffled PULMONARY: diminished breath sounds bilaterally with no wheezing or rhonchi noted. ABDOMEN: soft. Nontender on exam. obese. non-distended, normoactive bowel soun ds. No palpable organomegaly. MUSCULOSKELETAL: No joint swelling or deformity. EXTREMITIES: No cyanosis, clubbing, or pedal edema. NEUROLOGICAL: Gross neurological examination did not reveal any focal deficits. Diffuse weakness SKIN: No rashes. Assessment: Right hip pain with history of severe osteoarthritis status post right hip arthroplasty , postop day 1 Acute kidney injury, likely secondary to diuretic and lisinopril which will be held, trending down Hypomagnesemia, improving Urinary retention, likely secondary to anesthesia and medication effect History of hyperlipidemia History of hypertension History of osteoarthritis Hypothyroidism history Obesity with BMI of 30.6 GI prophylaxis DVT prophylaxis Full code Plan: Patient is admitted under orthopedics and is status post right hip arthroplasty Patient tolerated the procedure well. Patient did have some urinary retention this morning requiring straight catheterization. Discussed with nursing staff to continue protocol with bladder scan and if requiring another straight catheterization would recommend indwelling Trinh catheter. Will initiate Flomax. Kidney functions slightly elevated and will add gentle IV hydration as sodium is mildly low as well at 133 and will follow-up with repeat labs Patient's white count remains elevated, likely reactive and will follow-up on repeat labs. Patient is afebrile denies shortness of breath or does not appear infectious at all Patient's creatinine mildly elevated and patient reports this is chronic as well most likely secondary to lisinopril and diuretic use and did receive vancomycin during surgery, repeat labs ordered for a.m. Patient working with physical therapy and planning on ECF for continued strength and mobility. Patient does live alone and normally independent prior to surgery and would benefit from ECF for continued PT/OT therapy. Case management following and has submitted for insurance authorization We will continue to follow with orthopedics during hospitalization. Thank you kindly for this consultation. The impression and plan of care has been dictated by Moriah Mack, nurse practitioner as directed. Dr. Ninfa MD I have performed a history and examination and MDM of this patient, discussed the same with the dictator, and agree with the dictator's assessment and plan as written ,documented as a scribe. Based on total visit time, I have performed more than 50% of the visit. Any additional findings or plans will be noted. Objective - Vital Signs Vital signs: Vital Signs Temp 97.2 F L 11/07/22 08:17 Pulse 51 L 11/07/22 08:17 Resp 17 11/07/22 08:17 BP 107/59 11/07/22 08:17 Pulse Ox 96 11/07/22 08:17 FiO2 Intake & Output 11/06/22 11/07/22 11/07/22 18:59 06:59 18:59 Intake Total 1650 Output Total 200 100 75 Balance 1450 -100 -75 Intake: IV 1650 Output: Drainage 100 Right Hip 100 Post Void Residual 75 Estimated Blood Loss 200 Other: Voiding Method Bedside Commode # Voids 4 0 - Labs CBC & Chem 7: 11/07/22 06:42 11/07/22 12:48 Labs: Abnormal Lab Results - Last 24 Hours (Table) 11/06/22 11/06/22 11/06/22 Range/Units 10:35 10:35 10:35 WBC 12.5 H (3.8-10.6) k/uL RBC (3.80-5.40) m/uL Hgb (11.4-16.0) gm/dL Hct (34.0-46.0) % Neutrophils # 10.2 H (1.3-7.7) k/uL Lymphocytes # (1.0-4.8) k/uL Monocytes # (0-1.0) k/uL Sodium 136 L (137-145) mmol/L Carbon Dioxide 20 L (22-30) mmol/L BUN 41 H (7-17) mg/dL Creatinine 1.30 H (0.52-1.04) mg/dL Glucose 142 H (74-99) mg/dL Hemoglobin A1c 7.2 H (<=6.0) % 11/07/22 Range/Units 06:42 WBC 21.7 H (3.8-10.6) k/uL RBC 3.49 L (3.80-5.40) m/uL Hgb 10.2 L D (11.4-16.0) gm/dL Hct 31.6 L (34.0-46.0) % Neutrophils # 19.5 H (1.3-7.7) k/uL Lymphocytes # 0.4 L (1.0-4.8) k/uL Monocytes # 1.5 H (0-1.0) k/uL Sodium (137-145) mmol/L Carbon Dioxide (22-30) mmol/L BUN (7-17) mg/dL Creatinine (0.52-1.04) mg/dL Glucose (74-99) mg/dL Hemoglobin A1c (<=6.0) %
[2022-11-07] MEDS: MAGNESIUM SULFATE-D5W PMX 1 GM in DEXTROSE/WATER 1 100ML.BAG IVPB SCH ×2 (16:39→17:54)
[2022-11-07] MEDS: MAG HYDROX/AL HYDROX/SIMETH 30 ML CUP PO PRN (17:54)
--- NOTE | 2022-11-07 18:38 | P.PN ---
Subjective Progress Note Date: 11/07/22 This patient is an 82-year-old female who is status-post right direct anterior total hip arthroplasty on 11/06/22. Today is post-operative day #1. Patient is up to the bedside chair. She is having issues with urinary retention. She ambulated in [place] with physical therapy today. Patient is planning to discharge to rehab. Pain is well controlled in the right hip. No new complaints. Denies chest pain, shortness of breath. Objective - Vital Signs Vital signs: Vital Signs Temp 98.3 F 11/07/22 13:12 Pulse 125 H 11/07/22 13:12 Resp 18 11/07/22 13:12 BP 86/46 11/07/22 13:12 Pulse Ox 91 L 11/07/22 13:12 FiO2 Intake & Output 11/06/22 11/07/22 11/07/22 18:59 06:59 18:59 Intake Total 1650 Output Total 200 100 75 Balance 1450 -100 -75 Intake: IV 1650 Output: Drainage 100 Right Hip 100 Post Void Residual 75 Estimated Blood Loss 200 Other: Voiding Method Bedside Commode Bedside Commode # Voids 4 0 1 - Exam On examination, patient is sitting up in the bedside chair in no apparent distress. She is alert and orientated x3. On inspection on the right hip, there is a Prevena wound vac in place with a good seal. Hemovac drain removed bedside during exam. Mild swelling of the thigh, thigh is soft and compressible. Motor and sensory function intact of the right lower extremity. Femoral nerve function intact. Right lower extremity warm and well perfused. Calf non-tender. - Labs CBC & Chem 7: 11/07/22 06:42 11/07/22 12:48 Labs: Abnormal Lab Results - Last 24 Hours (Table) 11/06/22 11/07/22 11/07/22 Range/Units 10:35 06:42 12:48 WBC 21.7 H (3.8-10.6) k/uL RBC 3.49 L (3.80-5.40) m/uL Hgb 10.2 L D (11.4-16.0) gm/dL Hct 31.6 L (34.0-46.0) % Neutrophils # 19.5 H (1.3-7.7) k/uL Lymphocytes # 0.4 L (1.0-4.8) k/uL Monocytes # 1.5 H (0-1.0) k/uL Sodium 133 L (137-145) mmol/L Carbon Dioxide 20 L (22-30) mmol/L BUN 49 H (7-17) mg/dL Creatinine 1.97 H (0.52-1.04) mg/dL Glucose 146 H (74-99) mg/dL Hemoglobin A1c 7.2 H (<=6.0) % Assessment and Plan Assessment: Status-post right direct anterior total hip arthroplasty on 11/06/22. Post-op day #1. Plan: - WBAT on operative extremity with a walker. - Keep Prevena wound vac in place. - Physical therapy for gait and balance training. - Pain medication as needed. - Aspirin 81mg BID for DVT prophylaxis. - Internal medicine for ashleigh-op medical management. - Case management for discharge planning. Anticipate discharge to rehab.
[2022-11-07] MEDS: ATORVASTATIN 40 MG TAB PO SCH (20:28)
[2022-11-07] MEDS: SENNOSIDES-DOCUSATE SODIUM 1 EACH TAB PO SCH (20:28)
[2022-11-07] MEDS: SODIUM CHLORIDE 0.9% 1,000 ML IV SCH (20:28)
[2022-11-07] MEDS: CHOLECALCIFEROL 125 MCG (5000 IU) TABLET PO SCH (20:28)
[2022-11-08] MEDS: HYDROcodone/APAP 5-325MG 1 EACH TAB PO PRN ×4 (01:45→19:57)
[2022-11-08] MEDS: SODIUM CHLORIDE 0.9% 1,000 ML IV SCH ×2 (06:26→17:59)
[2022-11-08] MEDS: LEVOTHYROXINE 137 MCG TAB PO SCH (06:39)
[2022-11-08] MEDS: ASPIRIN 81 MG PO SCH ×2 (08:29→19:57)
[2022-11-08] MEDS: FOLIC ACID 1 MG TAB PO SCH (08:30)
[2022-11-08] MEDS: FAMOTIDINE 20 MG TAB PO SCH (08:30)
[2022-11-08] MEDS: TAMSULOSIN 0.4 MG CAP.ER.24H PO SCH (08:30)
[2022-11-08] MEDS: SERTRALINE 100 MG TAB PO SCH (08:30)
--- NOTE | 2022-11-08 08:30 | P.PN ---
Subjective Progress Note Date: 11/08/22 This patient is an 82-year-old female who is status-post right direct anterior total hip arthroplasty on 11/06/22. Today is post-operative day #2. Patient is examined bedside this morning with Dr. Castillo. She states the pain in her right hip is well controlled at this time. Trinh catheter was inserted yesterday per internal medicine due to urinary retention. Plan is to remove this morning for a voiding trial. Patient is planning to discharge to rehab in [place] when auth is obtained. No new complaints this morning. Objective - Vital Signs Vital signs: Vital Signs Temp 98.1 F 11/08/22 02:05 Pulse 88 11/08/22 02:05 Resp 18 11/08/22 02:05 BP 102/52 11/08/22 02:05 Pulse Ox 92 L 11/08/22 02:05 FiO2 Intake & Output 11/07/22 11/08/22 11/08/22 18:59 06:59 18:59 Output Total 75 600 Balance -75 -600 Output: Urine 600 Post Void Residual 75 Other: Voiding Method Bedside Commode Indwelling Catheter # Voids 1 1 - Exam On examination, patient is sitting up in bed in no apparent distress. She is alert and orientated x3. On inspection on the right hip, there is a Prevena wound vac in place with a good seal. Mild swelling of the thigh, thigh is soft and compressible. Motor and sensory function intact of the right lower ex tremity. Femoral nerve function intact. Right lower extremity warm and well perfused. Calf non-tender. - Labs CBC & Chem 7: 11/07/22 06:42 11/07/22 12:48 Labs: Abnormal Lab Results - Last 24 Hours (Table) 11/07/22 Range/Units 12:48 Sodium 133 L (137-145) mmol/L Carbon Dioxide 20 L (22-30) mmol/L BUN 49 H (7-17) mg/dL Creatinine 1.97 H (0.52-1.04) mg/dL Glucose 146 H (74-99) mg/dL Assessment and Plan Assessment: Status-post right direct anterior total hip arthroplasty on 11/06/22. Post-op day #2. Plan: - WBAT on operative extremity with a walker. - Keep Prevena wound vac in place. - Physical therapy for gait and balance training. - Pain medication as needed. - Aspirin 81mg BID for DVT prophylaxis. - Internal medicine for ashleigh-op medical management. - Case management for discharge planning. Anticipate discharge to rehab when auth is obtained.
[2022-11-08 13:37] LABS: Blood Urea Nitrogen 39.9 mg/dL (9.0-27.0); Calcium 8.4 mg/dL (8.7-10.3); Chloride 100 mmol/L (96-109); Glucose 132 mg/dL (70-110); Potassium 4.3 mmol/L (3.5-5.5); Sodium 134 mmol/L (135-145)
[2022-11-08] MEDS ORDERED: BENZOCAINE/MENTHOL LOZENG 1 EACH LOZENGE MUCOUS MEM PRN (17:57)
[2022-11-08] MEDS: MAG HYDROX/AL HYDROX/SIMETH 30 ML CUP PO PRN (17:58)
[2022-11-08] MEDS: ATORVASTATIN 40 MG TAB PO SCH (19:57)
[2022-11-08] MEDS: SENNOSIDES-DOCUSATE SODIUM 1 EACH TAB PO SCH (19:57)
[2022-11-08] MEDS: CHOLECALCIFEROL 125 MCG (5000 IU) TABLET PO SCH (19:57)
--- NOTE | 2022-11-08 21:30 | P.PN ---
Subjective Progress Note Date: 11/08/22 - Reason for Consult Consult date: 11/06/22 Medical management, right hip arthroplasty - History of Present Illness This is a 82-year-old female who presented to the emergency department 1 day prior to outpatient orthopedic intervention for uncontrolled pain of the right hip. Patient is scheduled for right hip arthroplasty with Dr. Castillo today and has received cardiology and medical clearance from her primary care provider Peyton Blackwell. Patient reports she had a stress test and echocardiogram within the last month or so and has achieved cardiac clearance. Patient follows with Peyton Bishop in the outpatient setting with a past medical history of hyperlipidemia, hypertension, osteoarthritis, thyroid disorder, previous heart catheterization with stenting and was a former smoker. Patient denies any alcohol or illicit drug use. Patient was having some uncontrolled pain in the right hip and presented to the emergency department also with some generalized feelings of shortness of breath. EKG in the ER showed sinus rhythm with frequent supraventricular premature complexes with heart rate of 74 bpm. Will obtain repeat EKG this patient's heart rate is noted to be in the 40s and 50s today. Patient reports this is chronic. Patient also reports she chronically has an elevated white count on initial labs were 14.7 with a hemoglobin of 13.3 and platelets were normal at 320. Sodium was 136 with a potassium of 4.7, BUN 35 with a creatinine of 1.37. Urinalysis was negative. Patient was admitted to orthopedics and scheduled to have right hip arthroplasty today. 11/07/2022 Patient is seen in follow-up today status post right hip arthroplasty and reports her pain is good and controlled of the right hip although having some neck pain and also experience some urinary retention requiring straight ca theterization this morning. Discussed with nursing staff and will start Flomax and continue with protocol if requiring another straight catheterization consider indwelling Trinh catheter. Patient's kidney functions elevated today at 1.97 and was continued on vancomycin for surgery which has been completed and we'll transition to gentle IV hydration with normal saline as sodium is also slightly low at 133 and follow-up with repeat labs to monitor kidney functions. Magnesium 1.7 and will replace per protocol as well. White count was elevated at 21.7 although patient is afebrile with no reports of shortness of breath or infectious process. Most likely reactive and will follow-up with repeat labs in a.m. Patient is afebrile denies chest pain or shortness of breath and reports tolerating diet. Patient not eating very much as she reports not much of an appetite today. Patient also reports she hasn't slept in 2 days and will add as needed Seroquel at night. Patient work with physical therapy with case management following and working on ECF. 11/08/2022 Patient is seen in follow-up this morning and continues with indwelling Trinh catheter. Recommend trial voiding. Awaiting follow-up labs as kidney functions were elevated and is continued on gentle IV hydration. Patient is afebrile with no reports of chest pain or shortness of breath noted. No reported nausea or vomiting and patient tolerating diet. Case management following and plan is for [facility] in [place] for ECF for continued PT/OT therapy. Review of systems: Constitutional: No reports of fatigue, fever, or chills Cardiovascular: No reports of chest pain or palpitations Respiratory: No reports of shortness of breath or cough GI: No reports of nausea, vomiting, or diarrhea : No reports of dysuria or pain or frequency with urination. Patient retaining requiring indwelling Trinh catheter Neurovascular: No reports of weakness or numbness All medications have been reviewed PHYSICAL EXAMINATION: GENERAL: The patient is alert and oriented x4, Well developed, well nourished. Obese HEENT: Pupils are round and equally reacting to light. EOMI. no scleral icterus. No conjunctival pallor. Normocephalic, atraumatic. No pharyngeal erythema. No thyromegaly. CARDIOVASCULAR: S1 and S2 muffled PULMONARY: diminished breath sounds bilaterally with no wheezing or rhonchi noted. ABDOMEN: soft. Nontender on exam. obese. non-distended, normoactive bowel sounds. No palpable organomegaly. MUSCULOSKELETAL: No joint swelling or deformity. EXTREMITIES: No cyanosis, clubbing, or pedal edema. NEUROLOGICAL: Gross neurological examination did not reveal any focal deficits. Diffuse weakness SKIN: No rashes. Assessment: Right hip pain with history of severe osteoarthritis status post right hip arthroplasty Acute kidney injury, likely secondary to diuretic and lisinopril which will be held, trending down Hypomagnesemia, improving Urinary retention, likely secondary to anesthesia and medication effect requiring indwelling Trinh catheter History of hyperlipidemia History of hypertension History of osteoarthritis Hypothyroidism history Obesity with BMI of 30.6 GI prophylaxis DVT prophylaxis Full code Plan: Patient is admitted under orthopedics and is status post right hip arthroplasty Patient tolerated the procedure well. Patient did have some urinary retention requiring indwelling Trinh catheter. Continue Flomax. Recommend trial void Kidney functions slightly elevated and will continue gentle IV hydration . Kidney functions improving and sodium is improved Patient's white count remains elevated, likely reactive and will follow-up on repeat labs. Patient is afebrile denies shortness of breath or does not appear infectious at all Patient's creatinine mildly elevated and patient reports this is chronic as well most likely secondary to lisinopril and diuretic use and did receive vancomycin during surgery, repeat labs ordered for a.m. Patient working with physical therapy and planning on ECF for continued strength and mobility. Case management following and has obtained insurance authorization Recommend trial voiding and monitoring overnight for any further retention and will follow-up with repeat labs to monitor kidney functions of possible discharge in 24 hours We will continue to follow with orthopedics during hospitalization. Thank you kindly for this consultation. The impression and plan of care has been dictated by Moriah Mack, nurse practitioner as directed. Dr. Ninfa MD I have performed a history and examination and MDM of this patient, discussed the same with the dictator, and agree with the dictator's assessment and plan as written ,documented as a scribe. Based on total visit time, I have performed more than 50% of the visit. Any additional findings or plans will be noted. Objective - Vital Signs Vital signs: Vital Signs Temp 98.1 F 11/08/22 02:05 Pulse 88 11/08/22 02:05 Resp 18 11/08/22 02:05 BP 102/52 11/08/22 02:05 Pulse Ox 92 L 11/08/22 02:05 FiO2 Intake & Output 11/07/22 11/08/22 11/08/22 18:59 06:59 18:59 Output Total 75 600 Balance -75 -600 Output: Urine 600 Post Void Residual 75 Other: Voiding Method Bedside Commode Indwelling Catheter # Voids 1 1 - Labs CBC & Chem 7: 11/07/22 06:42 11/08/22 07:03 Labs: Abnormal Lab Results - Last 24 Hours (Table) 11/07/22 Range/Units 12:48 Sodium 133 L (137-145) mmol/L Carbon Dioxide 20 L (22-30) mmol/L BUN 49 H (7-17) mg/dL Creatinine 1.97 H (0.52-1.04) mg/dL Glucose 146 H (74-99) mg/dL
[2022-11-09 01:29] VITALS: TEMP 98.1
[2022-11-09 06:14] LABS: Glucose,Whole Blood 160 mg/dL (70-110)
[2022-11-09] MEDS: LEVOTHYROXINE 137 MCG TAB PO SCH (06:21)
[2022-11-09] MEDS: FOLIC ACID 1 MG TAB PO SCH (07:40)
[2022-11-09] MEDS: FAMOTIDINE 20 MG TAB PO SCH (07:40)
[2022-11-09] MEDS: SERTRALINE 100 MG TAB PO SCH (07:40)
[2022-11-09] MEDS: ASPIRIN 81 MG PO SCH (07:40)
[2022-11-09] MEDS: TAMSULOSIN 0.4 MG CAP.ER.24H PO SCH (07:40)
[2022-11-09] MEDS: HYDROcodone/APAP 5-325MG 1 EACH TAB PO PRN (07:45)
[2022-11-09] MEDS: SODIUM CHLORIDE 0.9% 1,000 ML IV SCH (07:45)
[2022-11-09 08:11] VITALS: BP 168/67; PULSE 80; RESP 16
--- NOTE | 2022-11-09 10:13 | P.DS ---
Providers Date of admission: 11/08/22 10:44 Expected date of discharge: 11/09/22 Attending physician: Luis Castillo Consults: 11/05/22 12:44 Consult Physician Urgent Consulting Provider: Stone Duff Consult Reason/Comments: Medical management Do you want consulting provider notified?: Yes Primary care physician: Vel Mitch [facility] Course: This is an 82-year-old female who was last seen in our office with complaint of continued right hip pain. The patient has a known history of degenerative arthritis of the right hip and presents to discuss surgical options. After discussion and consideration the patient elects to proceed with a direct anterior right total hip arthroplasty. He is seen preoperatively by Dr. Shanel Villa PA-C with cardiology and cleared for surgery. The patient is admitted to [facility] for direct anterior right total hip arthroplasty. The procedure is performed without complication or sequelae. Vital signs and labs are stable on postoperative day #3. The patient is examined bedside this morning with Dr. Castillo. She states the pain in the right hip is well-controlled at this time. She is ambulating with walker with minimal assistance. Patient has been having issues On examination, the patient is sitting up in bed in no apparent distress. She is alert and oriented 3. On inspection of the right hip, there is a clean, dry, intact Prevena wound vac that has a good seal at this time. There is mild swelling of the thigh, thigh is soft and compressible. Motor and sensory function is intact of the right lower extremity. Femoral nerve function intact. The right lower extremity is warm and well-perfused. Calf is soft and nontender to palpation. The patient is discharged to rehab today in good condition, pending medical clearance. Please see discharge orders. Please refer to the med rec for accurate list of medications. He should follow-up in the office at [facility] in 2 weeks. Patient Condition at Discharge: Fair Plan - Discharge Summary Discharge Rx Participant: No New Discharge Prescriptions: New Aspirin 81 mg PO BID 30 Days #60 tab Docusate [Colace] 100 mg PO BID #60 capsule HYDROcodone/APAP 5-325MG [Vanduser 5-325] 1 - 2 tab PO Q6HR PRN 7 Days #32 tab PRN Reason: Pain Omeprazole 40 mg PO DAILY 30 Days #30 cap No Action Cholecalciferol [Vitamin D3 (125 Mcg = 5000 Iu)] 125 mcg PO HS Famotidine [Pepcid] 20 mg PO DAILY Triamterene-Hctz 37.5-25Mg [Maxzide 37.5-25] 1 tab PO DAILY Sertraline [Zoloft] 100 mg PO DAILY lisinopriL [Zestril] 20 mg PO DAILY Levothyroxine Sodium 137 mcg PO DAILY Atorvastatin [Lipitor] 40 mg PO HS ALPRAZolam [Xanax] 0.5 mg PO DAILY PRN PRN Reason: Anxiety Folic Acid 0.4 mg PO DAILY Discharge Medication List ALPRAZolam [Xanax] 0.5 mg PO DAILY PRN 11/05/22 [History] Atorvastatin [Lipitor] 40 mg PO HS 11/05/22 [History] Cholecalciferol [Vitamin D3 (125 Mcg = 5000 Iu)] 125 mcg PO HS 11/05/22 [History] Famotidine [Pepcid] 20 mg PO DAILY 11/05/22 [History] Folic Acid 0.4 mg PO DAILY 11/05/22 [History] Levothyroxine Sodium 137 mcg PO DAILY 11/05/22 [History] Sertraline [Zoloft] 100 mg PO DAILY 11/05/22 [History] Triamterene-Hctz 37.5-25Mg [Maxzide 37.5-25] 1 tab PO DAILY 11/05/22 [History] lisinopriL [Zestril] 20 mg PO DAILY 11/05/22 [History] Aspirin 81 mg PO BID 30 Days #60 tab 11/08/22 [Rx] Docusate [Colace] 100 mg PO BID #60 capsule 11/08/22 [Rx] HYDROcodone/APAP 5-325MG [Vanduser 5-325] 1 - 2 tab PO Q6HR PRN 7 Days #32 tab 11/08/22 [Rx] Omeprazole 40 mg PO DAILY 30 Days #30 cap 11/08/22 [Rx] Follow up Appointment(s)/Referral(s): Peyton Bishop PAC [Family Provider] - 1-2 days Luis Castillo MD [Medical Doctor] - 2 Weeks Activity/Diet/Wound Care/Special Instructions: Weight bear to tolerance on operative extremity with a walker. Keep Prevena wound VAC until follow-up appointment in the office. Do not remove. Call the office with any questions or concerns regarding the Prevena pump. Take pain medication as prescribed. Take aspirin 81mg twice a day x 4 weeks for blood clot prevention. Follow-up in the office in two weeks at [facility]. Call the office with any questions or concerns,
--- NOTE | 2022-11-09 11:25 | CDI ---
Documentation Clarification Form Date: 11/09/2022 From: Sophia Dior Phone: [phone] Admit Date: 11/08/2022 10:44:00 AM Patient Name: Ceci Olivier Visit Number: [id number] ATTENTION: The Clinical Documentation Specialists (CDI) and [facility] Coding Staff appreciate your assistance in clarifying documentation. Please respond to the clarification below the line at the bottom and electronically sign. The CDI & [facility] Coding staff will review the response and follow-up if needed. Please note: Queries are made part of the Legal Health Record. If you have any questions, please contact the author of this message via ITS. Dr. Luis Castillo Hgb of 10.2 is documented in the record on 11/07 after the patients right total hip replacement. Please clarify the clinical significance of the Hgb. History/Risk Factors: presented with severe R hip OA and has a h/o osteopenia, obesity and CKD Clinical indicators: Proc 11/06: R direct anterori total hip arthroplasty, application of negative pressure incisional wound VAC right hip. EBL 200ml per the op note and 700ml of IV fluid given during the procedure. Pre-op Hgb/Hct: 13.5/41.6 Post-op Hgb/Hct: 10.2/31.6 Treatment: IV hydration Please clarify the clinical significance of the Hgb noted in the record: [ ] Acute blood loss anemia [ ] Other anemia (please specify) [ ] Dilutional value, no anemia noted [ ] No clinical significance [ ] Unable to determine [ ] Other, please specify (Template Last Revised: April 2020) MTDD
[2022-11-09 14:03] LABS: Basophils # (A) 0.03 X 10*3/uL (0.00-0.10); Basophils % (A) 0.2 %; Eosinophils # (A) 0.13 X 10*3/uL (0.04-0.35); HCT 25.3 % (37.2-46.3); HGB 8.2 d/dL (12.0-15.0); Lymphocytes # (A) 0.77 X 10*3/uL (0.90-5.00); MCH 29.3 pg (27.0-32.0); MCHC 32.4 d/dL (32.0-37.0); MCV 90.4 FL (80.0-97.0); Mean Platelet Volume 11.1 FL (9.5-12.2); Monocytes # (A) 1.21 X 10*3/uL (0.20-1.00); Monocytes % (A) 9.5 %; NRBC Per 100 WBC 0 X 10*3/uL (0.00-0.01); Neutrophils # (A) 10.47 X 10*3/uL (1.80-7.70); Neutrophils % (A) 81.9 %; Platelet Count 231 X 10*3/uL (140-440); RDW 14.6 % (11.5-14.5); WBC 12.79 X 10*3/uL (4.50-10.00)
[2022-11-09 14:20] LABS: Basophils % (A) 0 %; Eosinophils # (A) 0.1 k/uL (0-0.7); Eosinophils % (A) 1 %; HCT 29.2 % (34.0-46.0); HGB 9.5 gm/dL (11.4-16.0); Lymphocytes # (A) 0.7 k/uL (1.0-4.8); Lymphocytes % (A) 5 %; MCH 29.3 pg (25.0-35.0); MCHC 32.6 g/dL (31.0-37.0); MCV 89.8 fL (80.0-100.0); Mean Platelet Volume 9.8; Monocytes # (A) 0.7 k/uL (0-1.0); Monocytes % (A) 6 %; Neutrophils # (A) 11.5 k/uL (1.3-7.7); Neutrophils % (A) 87 %; Platelet Count 253 k/uL (150-450); RBC 3.25 m/uL (3.80-5.40); RDW 13.8 % (11.5-15.5); WBC 13.2 k/uL (3.8-10.6)
[2022-11-09 14:43] LABS: BUN/Creat Ratio 24.09 Ratio (12.00-20.00); Blood Urea Nitrogen 26.5 mg/dL (9.0-27.0); Calcium 8.4 mg/dL (8.7-10.3); Carbon Dioxide 23.1 mmol/L (21.6-31.8); Chloride 105 mmol/L (96-109); Glucose 140 mg/dL (70-110); Magnesium 2.2 mg/dL (1.5-2.4); Potassium 4.5 mmol/L (3.5-5.5); Sodium 139 mmol/L (135-145)
--- NOTE | 2022-11-09 15:43 | P.PN ---
Subjective Progress Note Date: 11/09/22 - Reason for Consult Consult date: 11/06/22 Medical management, right hip arthroplasty - History of Present Illness This is a 82-year-old female who presented to the emergency department 1 day prior to outpatient orthopedic intervention for uncontrolled pain of the right hip. Patient is scheduled for right hip arthroplasty with Dr. Castillo today and has received cardiology and medical clearance from her primary care provider Peyton ARCE and [facility]. Patient reports she had a stress test and echocardiogram within the last month or so and has achieved cardiac clearance. Patient follows with Peyton Bishop in the outpatient setting with a past medical history of hyperlipidemia, hypertension, osteoarthritis, thyroid disorder, previous heart catheterization with stenting and was a former smoker. Patient denies any alcohol or illicit drug use. Patient was having some uncontrolled pain in the right hip and presented to the emergency department also with some generalized feelings of shortness of breath. EKG in the ER showed sinus rhythm with frequent supraventricular premature complexes with heart rate of 74 bpm. Will obtain repeat EKG this patient's heart rate is noted to be in the 40s and 50s today. Patient reports this is chronic. Patient also reports she chronically has an elevated white count on initial labs were 14.7 with a hemoglobin of 13.3 and platelets were normal at 320. Sodium was 136 with a potassium of 4.7, BUN 35 with a creatinine of 1.37. Urinalysis was negative. Patient was admitted to orthopedics and scheduled to have right hip arthroplasty today. 11/07/2022 Patient is seen in follow-up today status post right hip arthroplasty and reports her pain is good and controlled of the right hip although having some neck pain and also experience some urinary retention requiring straight ca theterization this morning. Discussed with nursing staff and will start Flomax and continue with protocol if requiring another straight catheterization consider indwelling Trinh catheter. Patient's kidney functions elevated today at 1.97 and was continued on vancomycin for surgery which has been completed and we'll transition to gentle IV hydration with normal saline as sodium is also slightly low at 133 and follow-up with repeat labs to monitor kidney functions. Magnesium 1.7 and will replace per protocol as well. White count was elevated at 21.7 although patient is afebrile with no reports of shortness of breath or infectious process. Most likely reactive and will follow-up with repeat labs in a.m. Patient is afebrile denies chest pain or shortness of breath and reports tolerating diet. Patient not eating very much as she reports not much of an appetite today. Patient also reports she hasn't slept in 2 days and will add as needed Seroquel at night. Patient work with physical therapy with case management following and working on ECF. 11/08/2022 Patient is seen in follow-up this morning and continues with indwelling Trinh catheter. Recommend trial voiding. Awaiting follow-up labs as kidney functions were elevated and is continued on gentle IV hydration. Patient is afebrile with no reports of chest pain or shortness of breath noted. No reported nausea or vomiting and patient tolerating diet. Case management following and plan is for [facility] in [place] for ECF for continued PT/OT therapy. 11/09/2022 Patient is seen and evaluated in follow-up today and had indwelling Trinh catheter removed yesterday and has been voiding with no difficulties. Patient continued on Flomax and would recommend one week. Patient awaiting for follow- up labs on kidney functions and patient was maintained on gentle IV hydration showing improvements and creatinine is currently 1.1. Patient is afebrile with no reported chest pain, shortness of breath, or palpitations. Patient is tolerating diet although maintained on soft foods as patient continues to have some mild throat irritation from surgery and would recommend aspiration precautions along with soft foods and Cepacol as needed. Patient's blood pressure mildly elevated today and will resume home medications in the form of lisinopril for ECF. He is medically stable for discharge to ECF today. Review of systems: Constitutional: No reports of fatigue, fever, or chills Cardiovascular: No reports of chest pain or palpitations Respiratory: No reports of shortness of breath or cough GI: No reports of nausea, vomiting, or diarrhea : No reports of dysuria or pain or frequency with urination. Patient is voiding with no difficulties post Trinh catheter removal Neurovascular: No reports of weakness or numbness All medications have been reviewed PHYSICAL EXAMINATION: GENERAL: The patient is alert and oriented x4, Well developed, well nourished. Obese HEENT: Pupils are round and equally reacting to light. EOMI. no scleral icterus. No conjunctival pallor. Normocephalic, atraumatic. No pharyngeal erythema. No thyromegaly. CARDIOVASCULAR: S1 and S2 muffled PULMONARY: diminished breath sounds bilaterally with no wheezing or rhonchi noted. ABDOMEN: soft. Nontender on exam. obese. non-distended, normoactive bowel sounds. No palpable organomegaly. MUSCULOSKELETAL: No joint swelling or deformity. EXTREMITIES: No cyanosis, clubbing, or pedal edema. NEUROLOGICAL: Gross neurological examination did not reveal any focal deficits. Diffuse weakness SKIN: No rashes. Assessment: Right hip pain with history of severe osteoarthritis status post right hip arthroplasty Acute kidney injury, likely secondary to diuretic and lisinopril which will be held, trending down Hypomagnesemia, improving Urinary retention, likely secondary to anesthesia and medication effect requiring indwelling Trinh catheter, resolved, voiding post Trinh catheter removal History of hyperlipidemia History of hypertension History of osteoarthritis Hypothyroidism history Obesity with BMI of 30.6 GI prophylaxis DVT prophylaxis Full code Plan: Patient is admitted under orthopedics and is status post right hip arthroplasty Patient tolerated the procedure well. Patient did have some urinary retention requiring indwelling Trinh catheter. Continue Flomax. Patient had Trinh catheter removed yesterday evening and tolerating and voiding with no difficulties Kidney functions improving in trending down and creatinine is 1.1 today. Recommend follow-up labs in the outpatient setting of CBC, BMP, magnesium in the next 2-3 days Recommend compression stockings or Manav wraps to bilateral lower extremities from the toes up to the knees elevating while at rest Recommend aspiration precautions and sitting up with each meal head of the bed elevated 30-45 at all times while in bed Patient working with physical therapy and will be going to [facility] bed. Case management following and has obtained insurance authorization We will continue to follow with orthopedics during hospitalization. Thank you kindly for this consultation. Patient is medically stable for discharge to [facility] today. The impression and plan of care has been dictated by Moriah Mack, nurse practitioner as directed. Dr. Gamaliel MD I have performed a history and examination and MDM of this patient, discussed the same with the dictator, and agree with the dictator's assessment and plan as written ,documented as a scribe. Based on total visit time, I have performed more than 50% of the visit. Any additional findings or plans will be noted. Objective - Vital Signs Vital signs: Vital Signs Temp 98.1 F 11/09/22 06:47 Pulse 80 11/09/22 06:47 Resp 16 11/09/22 06:47 BP 168/67 11/09/22 06:47 Pulse Ox 96 11/09/22 06:47 FiO2 Intake & Output 11/08/22 11/09/22 11/09/22 18:59 06:59 18:59 Intake Total 900 Output Total 1140 Balance -240 Intake: IV 900 Sodium Chloride 0.9% 1, 900 000 ml @ 75 mls/hr IV . [id number] [facility] Rx#:[id number] Output: Urine 1140 Uretheral (Trinh) 1140 Other: Voiding Method Indwelling Catheter # Voids 3 # Bowel Movements 2 - Labs CBC & Chem 7: 11/09/22 14:09 11/09/22 14:09 Labs: Abnormal Lab Results - Last 24 Hours (Table) 11/08/22 11/09/22 Range/Units 07:03 06:13 Sodium 134 L (135-145) mmol/L BUN 39.9 H (9.0-27.0) mg/dL Est GFR (CKD-EPI) 34 L (>=60) BUN/Creatinine Ratio 26.60 H (12.00-20.00) Ratio Glucose 132 H (70-110) mg/dL POC Glucose (mg/dL) 160 H (70-110) mg/dL Calcium 8.4 L (8.7-10.3) mg/dL
--- NOTE | 2022-11-13 21:19 | CDI ---
Documentation Clarification Form Date: 11/13/2022 09:03:21 PM From: Eunice Monroy Phone: Admit Date: 11/08/2022 10:44:00 AM Patient Name: Ceci Olivier Visit Number: [id number] Discharge Date: 11/09/2022 03:08:00 PM ATTENTION: The Clinical Documentation Specialists (CDI) and [facility] Coding Staff appreciate your assistance in clarifying documentation. Please respond to the clarification below the line at the bottom and electronically sign. The CDI & [facility] Coding staff will review the response and follow-up if needed. Please note: Queries are made part of the Legal Health Record. If you have any questions, please contact the author of this message via ITS. Dr. Luis Castillo Unspecified CKD is documented per Procedure Note 11/06. Additional clarification regarding the stage of CKD is requested. History/Risk Factors: 82yo F, Rt hiposteoarthritis s/p THR, ABRAHAM d/t diuretic and Lisinopril, hypomagnesemia, urinary retention d/t anesthesia and medication effect, HLD, HTN, CAD, hypothyroidism, obesity Clinical Indicators: AA GFR: 11/06 44 11/07 26 nonAA GRF: 11/08 34 11/09 50 BUN 11/08 26.60 11/09 24.09 Creatinine 11/06 13 11/07 1.97 11/08 1.5 11/09 1.1 Treatment: lab monitored Please clarify the stage of the CKD, if known: [ ] CKD Stage 3a (GFR 45-59) [ ] CKD Stage 3b (GFR 30-44) [ ] CKD Stage 4 (GFR 15-29) [ ] Other, please specify [ ] Unable to determine Please contact internal medicine for this. I didn't document CKD and don't manage or treat this condition. I am unable to answer this question.. WB MTDD
--- NOTE | 2022-11-16 15:04 | CDI ---
Documentation Clarification Form Date: 11/16/2022 02:50:34 PM From: Eunice Monroy Phone: Admit Date: 11/08/2022 10:44:00 AM Patient Name: Ceci Olivier Visit Number: [id number] Discharge Date: 11/09/2022 03:08:00 PM ATTENTION: The Clinical Documentation Specialists (CDI) and [facility] Coding Staff appreciate your assistance in clarifying documentation. Please respond to the clarification below the line at the bottom and electronically sign. The CDI & [facility] Coding staff will review the response and follow-up if needed. Please note: Queries are made part of the Legal Health Record. If you have any questions, please contact the author of this message via ITS. Dr. Xavi Ocasio Unspecified CKD is documented per Procedure Note 11/06. Additional clarification regarding the stage of CKD is requested. History/Risk Factors: 82yo F, Rt hip osteoarthritis s/p THR, ABRAHAM d/t diuretic and Lisinopril, hypomagnesemia, urinary retention d/t anesthesia and medication effect, HLD, HTN, CAD, hypothyroidism, obesity Clinical Indicators: AA GFR: 11/06 44 11/07 26 nonAA GRF: 11/08 34 11/09 50 BUN 11/08 26.60 11/09 24.09 Creatinine 11/06 13 11/07 1.97 11/08 1.5 11/09 1.1 Treatment: lab monitored Please clarify the stage of the CKD, if known: [ x] CKD Stage 3a (GFR 45-59) [ ] CKD Stage 3b (GFR 30-44) [ ] CKD Stage 4 (GFR 15-29) [ ] Other, please specify [ ] Unable to determine MTDD
== END 2022-11-09 15:08 ==
LOC: EC 12:21 → 4SSUR 12:52 → OBSVTOIN 11-08 10:44 → INTOOBSV 11-08 10:44 → UNDODISIN 11-09 15:08
PROVIDERS: ADMIT Orthopaedic Surgery; ATTEND Orthopaedic Surgery
PROC: 3E0T3BZ Introduction of Anesthetic Agent into Peripheral Nerves and Plexi, Percutaneous Approach (ICD-10-PCS; 2022-11-06)
PROC: 0SR9019 Replacement of Right Hip Joint with Metal Synthetic Substitute, Cemented, Open Approach (ICD-10-PCS; principal; 2022-11-06 14:00)
DX: M16.11 Unilateral primary osteoarthritis, right hip (principal); D62 Acute posthemorrhagic anemia; N17.9 Acute kidney failure, unspecified; E83.42 Hypomagnesemia; I12.9 Hypertensive chronic kidney disease with stage 1 through stage 4 chronic kidney disease, or unspecified chronic kidney disease; N18.31 Chronic kidney disease, stage 3a; I49.1 Atrial premature depolarization; I25.10 Atherosclerotic heart disease of native coronary artery without angina pectoris; E78.5 Hyperlipidemia, unspecified; E03.9 Hypothyroidism, unspecified; M85.80 Other specified disorders of bone density and structure, unspecified site; D72.829 Elevated white blood cell count, unspecified; R33.9 Retention of urine, unspecified; M54.2 Cervicalgia; E66.9 Obesity, unspecified; Z68.30 Body mass index [BMI] 30.0-30.9, adult; Z79.890 Hormone replacement therapy; Z79.899 Other long term (current) drug therapy; Z88.0 Allergy status to penicillin; Z88.1 Allergy status to other antibiotic agents; Z88.2 Allergy status to sulfonamides; Z90.49 Acquired absence of other specified parts of digestive tract; Z87.19 Personal history of other diseases of the digestive system; Z87.891 Personal history of nicotine dependence; Z99.3 Dependence on wheelchair; Z95.5 Presence of coronary angioplasty implant and graft; Z98.890 Other specified postprocedural states
CPT/HCPCS: 96365; 96376; 96375; 99284; 36415; 93005; 97116 ×2; 97161; 97535; 97166; 64447; 86900; 86901; 80053; 80048 ×4; 83735 ×3; 84520; 85025 ×4; 85610; 85730; 86850; 81003; 83036; 73501; 71045; 27130; G0378 ×2; C1776; C1713; J2250; J0171; J3370; J0330; J1100 ×2; J2710; J0690 ×2; J2405; J3010; J3475 ×2; J2795; J1885; J2704; J1170; J2001; 96374